=== PATIENT | female | born 1995 | race African-American/Black ===

== ENCOUNTER 2019-02-10 11:16 | Emergency (ER) | payer SELFPAY ==
[2019-02-10 11:48] LABS: Bilirubin Negative (Negative); Blood, Urine Large (Negative); Clarity Cloudy (Clear); Glucose, Urine (Dipstick) Negative (Negative); Leukocyte Small (Negative); Nitrite Positive (Negative); Protein, Urine (Dipstick) > or equal to 300 mg/dL (Neg-Trace); Specific Gravity, Urine 1.025 (1.005-1.030)
[2019-02-10 11:49] LABS: Pregnancy Test - Urine (BHCG) Negative (Negative); Pregu Control Background? CLEAR/WHITE (CLR/WHITE); Pregu Control Bar Appear? YES (CONTROL BAR); RBC/HPF GREATER THAN 50-TNTC HPF (0-3); Specific Gravity 1.025 (1.002-1.036)
[2019-02-10 11:50] LABS: Bacteria/HPF 4+ HPF (None Seen); WBC/HPF 21-50 HPF (0-3)
== END 2019-02-10 12:08 | disposition home or self-care (01) ==
LOC: BURERS 11:16
DX: N30.01 Acute cystitis with hematuria (principal); F41.9 Anxiety disorder, unspecified; F32.9 Major depressive disorder, single episode, unspecified; Z87.891 Personal history of nicotine dependence
CPT/HCPCS: 81003; 81015; 81025; 87077; 87086; 87186; 99283